=== PATIENT | male | born 1980 | race Two or more races ===

== ENCOUNTER 2021-07-25 00:28 | Inpatient (IN) | payer MEDICAID, OTHER ==
[~2021-07-25] VITALS: Ht 170.2 cm; Wt 87.2 kg
[2021-07-25] VITALS (38 sets, daily range): BP systolic 82–170; BP diastolic 43–115
[2021-07-25] MEDS ORDERED: HEPARIN 5000 UNITS/ML VIAL IV ONE (00:45)
[2021-07-25] MEDS ORDERED: SODIUM CHLORIDE 0.9% 1,000 ML IV ONE (00:45)
[2021-07-25] MEDS ORDERED: HEPARIN 5000 UNITS/ML VIAL IV SCH (00:45)
[2021-07-25] MEDS ORDERED: ASPIRIN 81MG TABLET PO ONE (00:45)
[2021-07-25] MEDS ORDERED: ASPIRIN 81MG TABLET PO SCH ×2 (00:45→09:00)
[2021-07-25 00:53] LABS: BASOPHILS % 0.4 % (0.0-2.0); EOSINOPHILS % 0.7 % (0.0-5.0); HEMATOCRIT. 46.7 % (42.0-52.0); HEMOGLOBIN. 15.8 g/dL (14.0-18.0); LYMPHOCYTES % 29.9 % (20.0-50.0); MEAN CORPUSCULAR HEMOGLOBIN 29.9 pg (28.0-32.0); MEAN CORPUSCULAR VOLUME 88.1 fL (80.0-94.0); MEAN PLATELET VOLUME 8.3 fl (7.4-10.4); MONOCYTES % 8.4 % (2.0-8.0); NEUTROPHILS % 60.6 % (40.0-76.0); PLATELET 199 x1000/uL (130-400); RED CELL DISTRIBUTION WIDTH 13.8 % (11.6-14.6)
[2021-07-25 01:00] LABS: CHLORIDE 103 mEq/L (98-107)
[2021-07-25] MEDS ORDERED: FENTANYL CITRATE/PF 50MCG/ML 2ML VIAL ONE (01:16)
[2021-07-25] MEDS ORDERED: MIDAZOLAM HCL 2 MG/2 ML VIAL ONE (01:16)
[2021-07-25 01:29] LABS: PARTIAL THROMBOPLASTIN TIME 24.8 sec (23.4-31.0); PROTHROMBIN TIME 10.3 sec (9.6-11.0)
[2021-07-25] MEDS ORDERED: FUROSEMIDE 20MG/2ML VIAL IVP SCH (03:15)
[2021-07-25] MEDS ORDERED: NOREPINEPHRINE 8MG/250ML PMX 250 ML IV PRN (03:15)
[2021-07-25] MEDS ORDERED: ONDANSETRON HCL 4MG/2ML INJ IV PRN (04:00)
[2021-07-25] MEDS ORDERED: ACETAMINOPHEN 325MG TABLET PO PRN (04:00)
[2021-07-25] MEDS ORDERED: MORPHINE SULFATE 2 MG/ML CPJ (NOT FOR IM USE) IV PRN (04:00)
[2021-07-25] MEDS ORDERED: NOREPINEPHRINE 8 MG in DEXTROSE 5% WATER 250 ML IV PRN (04:00)
[2021-07-25] MEDS ORDERED: HYDROCODONE/ACETAMINOPHEN 5/325MG TABLET PO PRN (04:00)
[2021-07-25] MEDS ORDERED: ENOXAPARIN 40MG/0.4ML SYR SUBCUT SCH (04:00)
[2021-07-25 06:21] LABS: BASOPHILS % 0.2 % (0.0-2.0); EOSINOPHILS % 0.1 % (0.0-5.0); HEMATOCRIT. 43.4 % (42.0-52.0); HEMOGLOBIN. 14.8 g/dL (14.0-18.0); LYMPHOCYTES % 12.3 % (20.0-50.0); MEAN CORPUSCULAR HEMOGLOBIN 29.8 pg (28.0-32.0); MEAN CORPUSCULAR VOLUME 87.7 fL (80.0-94.0); MEAN PLATELET VOLUME 8.8 fl (7.4-10.4); MONOCYTES % 6.8 % (2.0-8.0); NEUTROPHILS % 80.6 % (40.0-76.0); PLATELET 192 x1000/uL (130-400); RED BLOOD CELL COUNT 4.95 mill/uL (4.7-6.1); RED CELL DISTRIBUTION WIDTH 13.7 % (11.6-14.6)
[2021-07-25 06:35] LABS: CHLORIDE 108 mEq/L (98-107)
[2021-07-25 06:47] LABS: LDL CHOLESTEROL 145 mg/dL (5-100)
[2021-07-25 06:49] LABS: HDL CHOLESTEROL 52 mg/dL (40-59)
[2021-07-25] MEDS: PANTOPRAZOLE 40MG DR TABLET PO SCH (08:45)
[2021-07-25] MEDS: METOPROLOL TARTRATE 25MG TABLET PO SCH ×2 (08:45→20:32)
[2021-07-25] MEDS: ENOXAPARIN 30MG/0.3ML SYR SUBCUT SCH ×2 (08:45→20:32)
[2021-07-25] MEDS: CARVEDILOL 6.25 MG TABLET PO SCH ×2 (08:46→20:34)
[2021-07-25] MEDS: ASPIRIN 81MG EC TABLET PO SCH (08:46)
[2021-07-25] MEDS: TICAGRELOR 90 MG TABLET PO SCH ×2 (09:35→20:33)
[2021-07-25] MEDS: LISINOPRIL 5MG TABLET PO SCH ×2 (09:36→21:00)
[2021-07-25] MEDS ORDERED: NOREPINEPHRINE 8MG in NS 250ML PREMIX IV ONE (10:28)
[2021-07-25] MEDS ORDERED: HEPARIN 1000 UNITS/ML 10ML ONE (10:28)
[2021-07-25] MEDS ORDERED: NALOXONE HCL 0.4MG/ML VIAL IV PRN (15:30)
[2021-07-25] MEDS ORDERED: ATORVASTATIN CALCIUM 40MG TABLET PO SCH (21:00)
[2021-07-26] VITALS (19 sets, daily range): BP systolic 101–139; BP diastolic 45–115
[2021-07-26 06:26] LABS: BASOPHILS % 0.1 % (0.0-2.0); EOSINOPHILS % 0.9 % (0.0-5.0); HEMATOCRIT. 44.1 % (42.0-52.0); HEMOGLOBIN. 15.2 g/dL (14.0-18.0); LYMPHOCYTES % 20.5 % (20.0-50.0); MEAN CORPUSCULAR VOLUME 87.3 fL (80.0-94.0); MEAN PLATELET VOLUME 8.3 fl (7.4-10.4); MONOCYTES % 12.7 % (2.0-8.0); NEUTROPHILS % 65.8 % (40.0-76.0); PLATELET 193 x1000/uL (130-400); RED BLOOD CELL COUNT 5.06 mill/uL (4.7-6.1); RED CELL DISTRIBUTION WIDTH 13.4 % (11.6-14.6)
[2021-07-26 06:31] LABS: CHLORIDE 108 mEq/L (98-107)
[2021-07-26] MEDS: ENOXAPARIN 30MG/0.3ML SYR SUBCUT SCH (08:06)
[2021-07-26] MEDS: ASPIRIN 81MG EC TABLET PO SCH (08:06)
[2021-07-26] MEDS: TICAGRELOR 90 MG TABLET PO SCH (08:06)
[2021-07-26] MEDS: CARVEDILOL 6.25 MG TABLET PO SCH (08:07)
[2021-07-26] MEDS: LISINOPRIL 5MG TABLET PO SCH (08:07)
[2021-07-26] MEDS: PANTOPRAZOLE 40MG DR TABLET PO SCH (08:09)
[2021-07-26] MEDS: METOPROLOL TARTRATE 25MG TABLET PO SCH (08:09)
== END 2021-07-26 12:00 | disposition home or self-care (01) | DRG 247 ==
LOC: ER 00:28 → MICUSO 01:01 → CVICU 03:51
PROVIDERS: ADMIT Hospitalist; ATTEND Hospitalist
PROC: 4A023N7 Measurement of Cardiac Sampling and Pressure, Left Heart, Percutaneous Approach (ICD-10-PCS; principal; 2021-07-25)
PROC: 027035Z Dilation of Coronary Artery, One Artery with Two Drug-eluting Intraluminal Devices, Percutaneous Approach (ICD-10-PCS; 2021-07-25)
PROC: B2111ZZ Fluoroscopy of Multiple Coronary Arteries using Low Osmolar Contrast (ICD-10-PCS; 2021-07-25)
PROC: B2151ZZ Fluoroscopy of Left Heart using Low Osmolar Contrast (ICD-10-PCS; 2021-07-25)
PROC: B41F1ZZ Fluoroscopy of Right Lower Extremity Arteries using Low Osmolar Contrast (ICD-10-PCS; 2021-07-25)
DX: I21.19 ST elevation (STEMI) myocardial infarction involving other coronary artery of inferior wall (principal); I50.30 Unspecified diastolic (congestive) heart failure; I16.0 Hypertensive urgency; E78.5 Hyperlipidemia, unspecified; F12.90 Cannabis use, unspecified, uncomplicated; F10.10 Alcohol abuse, uncomplicated; K76.0 Fatty (change of) liver, not elsewhere classified; Z20.822 Contact with and (suspected) exposure to COVID-19; I10 Essential (primary) hypertension; F17.200 Nicotine dependence, unspecified, uncomplicated; Z98.61 Coronary angioplasty status; Z80.7 Family history of other malignant neoplasms of lymphoid, hematopoietic and related tissues; Z71.6 Tobacco abuse counseling
CPT/HCPCS: 36415; 71045; 71046; 80048; 80053; 80061; 83735; 84484; 85025; 85347; 87426; 92941; 93005; 93306; 93458; 99291; C1725; C1760; C1769; C1874; C1887; C1893; J1644; J1650; J1940; J2250; J3010; J3490; J7030; J8499